=== PATIENT | female | born 1965 | race Two or more races ===

== ENCOUNTER 2020-03-22 11:30 | Inpatient (IN) | payer OTHER ==
[~2020-03-22] VITALS: Ht 152.4 cm; Wt 67.1 kg
[~2020-03-22 11:30] MED LIST: COZAAR50 MG PO; FEMARA2.5 MG PO; HYDROCHLOROTHIA25 MG PO; JANUMET XR 1001 EACH PO; LOTREL 5-20 MG1 CAP PO
[2020-03-22] MEDS ORDERED: LOTREL 5-20 MG1 CAP PO (15:15)
[2020-03-22] MEDS ORDERED: AMITIZA24 MCG PO (15:16)
[2020-03-22] MEDS ORDERED: OXYCONTIN15 MG PO (15:16)
[2020-03-22] MEDS ORDERED: JARDIANCE25 MG PO (15:17)
[2020-03-22] MEDS ORDERED: METFORMIN HCL1000 M2 PO (15:17)
[2020-03-22] MEDS ORDERED: LIPITOR20 MG PO (15:17)
[2020-03-22] MEDS ORDERED: TAMOXIFEN CITRA20 MG PO (15:18)
[2020-03-30] MEDS ORDERED: OXYBUTYNIN CHLO15 MG (08:31)
[2020-04-02] MEDS ORDERED: IRON325 MG PO (07:07)
[2020-04-02] MEDS ORDERED: HYOSCYAMINE0.125 M1 SL (07:07)
[2020-04-02] MEDS ORDERED: PERCOCET 5-3251 EACH PO (07:07)
== END 2020-04-02 12:48 | disposition home or self-care (01) | DRG 743 ==
LOC: SURG-SUITE 03-29 09:29 → O/R 03-29 09:29 → SURH 03-29 11:30 → SURG-SUITE 03-29 18:38
PROVIDERS: Surgery Pediatric Surgery; ADMIT Obstetrics & Gynecology Gynecology; ATTEND Obstetrics & Gynecology Gynecology
PROC: 0UT20ZZ Resection of Bilateral Ovaries, Open Approach (ICD-10-PCS; 2020-03-29)
PROC: 0WQF0ZZ Repair Abdominal Wall, Open Approach (ICD-10-PCS; 2020-03-29)
PROC: 0UT90ZZ Resection of Uterus, Open Approach (ICD-10-PCS; principal; 2020-03-29 12:30)
PROC: 0UB70ZZ Excision of Bilateral Fallopian Tubes, Open Approach (ICD-10-PCS; 2020-03-29 12:30)
DX: D25.1 Intramural leiomyoma of uterus (principal); D25.2 Subserosal leiomyoma of uterus; N95.0 Postmenopausal bleeding; K40.20 Bilateral inguinal hernia, without obstruction or gangrene, not specified as recurrent; I10 Essential (primary) hypertension; C50.919 Malignant neoplasm of unspecified site of unspecified female breast; Z20.828 Contact with and (suspected) exposure to other viral communicable diseases